=== PATIENT | male | born 1950 | race Caucasian/White ===

== ENCOUNTER 2017-08-29 13:08 | Emergency (ER) | payer OTHER, MEDICARE ==
[2017-08-29] MEDS ORDERED: IBUPROFEN 600 MG TAB PO ONE (13:31)
[2017-08-29] MEDS ORDERED: ACETAMINOPHEN 325 MG TAB PO ONE (13:31)
--- NOTE | 2017-08-29 13:39 | EDPHY ---
H & P Smoking Status: Never smoked Time Seen by Provider: 08/29/17 13:12 HPI/ROS: This patient reports gradually increasing pain to the right lateral neck and shoulder. He has had this for months and feels that worsened during appear to time that he developed a Price inhibitor associated cough from lisinopril which she subsequently stopped. The symptoms diminished with ice to the neck and shoulder and worse with movement. In the morning the pain is typically achy and moderate intensity but through the day the pain increases in intensity becomes more sharp in nature. He tried ibuprofen yesterday without significant improvement and then took a single 10 mg oxycodone that he had without significant improvement. He reports associated radiation of the pain down his arm to his hand. He also describes paresthesias to the right hand with his symptoms. He has not taken any medications today prior to arrival. He drove himself by private vehicle for further evaluation. ROS: Constitutional: No fevers. HEENT: No recent head trauma or URI symptoms. Musculoskeletal: He has some chronic low back pain with what sounds like spinal stenosis by his description and by his description of MRI findings. No recent shoulder trauma. Neuro: No bowel or bladder incontinence. No focal weakness. Integumentary: No skin rash 7 point ROS is otherwise negative. (Doc Echevarria) Social History: Patient is a marijuana Grower. (Doc Echevarria) Physical Exam: Physical Exam Vital signs are normal. General: No acute distress HEENT: Atraumatic. Eyes: Pupils equal and react to light. Extraocular motions are intact. Neck: Patient has no midline tenderness. He does have right paraspinous muscular tenderness extends the right trapezius and rhomboid muscle area of the right shoulder. He has limited range of motion for flexion due to pain. The patient has increased pain with neck extension and increased pain with lateral flexion toward the affected side, decreased range lateral flexion away from the affected side. Lungs: No respiratory distress. Extremities: Atraumatic normal except for right shoulder Right shoulder: Patient has some tenderness near the apex of the shoulder but mostly posterior tenderness. Despite this, he retains full range of motion but does have some increased pain with AB duction. Cardiac: Brisk capillary refill is intact throughout. Pulses are 2+ and symmetric in the affected extremity. Skin: No rash or pallor. Neuro: Alert and oriented x3. Patient maintains normal light touch sensory exam bilateral upper extremities despite his paresthesias. He maintains 2+ symmetric biceps, triceps, brachioradialis and patellar DTRs bilaterally. no sensorimotor deficits are appreciated. 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 Initial differential diagnosis: Cervical radiculopathy, calcific tendinitis, impingement syndrome, rotator cuff injury, cervical strain (Doc Echevarria) Constitutional: Initial Vital Signs Temperature (C) 36.4 C 08/29/17 13:13 Heart Rate 81 08/29/17 13:13 Respiratory Rate 16 08/29/17 13:13 Blood Pressure 146/96 H 08/29/17 13:13 O2 Sat (%) 99 08/29/17 13:13 O2 Delivery Mode Room Air Allergies/Adverse Reactions: Sulfa (Sulfonamide Antibiotics) Allergy (Verified 08/29/17 13:12) Home Medications: Medication Instructions Recorded Lexapro 08/29/17 Lidocaine [Lidoderm] 1 each TP DAILY #20 adh..patch 08/29/17 Lipitor 08/29/17 Methocarbamol [Robaxin 750 mg (*)] 750 - 1,500 mg PO QID PRN #30 tab 08/29/17 Oxycodone HCl 08/29/17 methylPREDNISolone [Medrol Dose 4 mg PO AD #1 ea 08/29/17 Yandel] traMADol [Ultram 50 mg (*)] 50 - 100 mg PO Q4 PRN #20 tab 08/29/17 MDM/Departure - [facility] Imaging: I viewed and interpreted images myself - [facility] Diagnostics: Cervical spine x-rays: Multilevel degenerative changes by my interpretation. Shoulder x-rays: Normal by my interpretation. (Doc Echevarria) Imaging Results: Imaging Impressions Cervical Spine X-Ray 08/29/17 13:32 Impression: 1. Multilevel degenerative changes as above-detailed, with an underlying dextrocervical scoliosis and facet osteoarthropathy. 2. Secondary indicator of underlying cervical muscle spasm. 3. Indeterminate nodule in the right apex, necessitating further evaluation with unenhanced chest CT imaging. Additionally, if there is further clinical concern regarding the patient's cervicalgia and right radicular symptoms, MR imaging could be considered. A test result has been communicated to a licensed care provider and documented in the [facility] Critical Result system on 08/29/2017 16:50, Message ID [id number]. Shoulder X-Ray 08/29/17 13:32 Impression: Degenerative osteoarthritic features. If there is further clinical concern regarding the patient's shoulder pain, MR imaging could be considered. Medications Given: Discontinued Medications Acetaminophen (Tylenol) 975 mg PO EDNOW ONE Stop: 08/29/17 13:32 Last Admin: 08/29/17 13:35 Dose: 975 mg Ibuprofen (Motrin) 600 mg PO EDNOW ONE Stop: 08/29/17 13:32 Last Admin: 08/29/17 13:35 Dose: 600 mg ED Course/Re-evaluation: Patient's presentation suggests cervical radiculopathy. His cervical spine x- rays reveal significant multilevel degenerative changes. He does not have any neuro deficits appreciable on exam despite his right arm paresthesias. No long tract symptoms or other red flag findings. I think that his shoulder pain is attributable to his cervical radiculopathy and I counseled regarding this. Will treat him with Solu-Medrol and a combination of other analgesics some muscle relaxant. Encouraged him to follow up with Neurosurgery for further evaluation. Answered all his questions prior to discharge home. (Doc Echevarria) Radiology over-read by Dr. Pop. He describes 15 mm nodule in the right lung apex at the level of the 3rd posterior rib. I called the patient to tell him to get an unenhanced chest CT scan as recommended by Radiology. He has follow-up with Dr. Watters on Wednesday and will pursue further evaluation for this lung nodule. (Argenis Escalante) - Depart Disposition: Home, Routine, Self-Care Clinical Impression: Cervical radiculopathy Shoulder pain, right Qualifiers: Chronicity: acute Qualified Code(s): M25.511 - Pain in right shoulder Cervical spine degeneration Qualifiers: Spinal osteoarthritis complication: with radiculopathy Qualified Code(s): M47.22 - Other spondylosis with radiculopathy, cervical region Condition: Good Instructions: Cervical Radiculopathy (ED) Additional Instructions: Diagnoses: 1. Cervical radiculopathy 2. Shoulder pain 3. Cervical spine degeneration Plan: Lidoderm patches as prescribed Gentle stretches as described Solu-Medrol Dosepak Methocarbamol muscle relaxant Tylenol in addition Tramadol if needed for pain that prevents sleep. No driving, alcohol work on tramadol. Follow up with neuro surgeon listed below for further evaluation of your neck. Return to the emergency department for any significant worsening despite the treatment plan. Prescriptions: Lidocaine [Lidoderm] 1 each TP DAILY #20 adh..patch Methocarbamol [Robaxin 750 mg (*)] 750 - 1,500 mg PO QID PRN #30 tab PRN Reason: Muscle Spasms methylPREDNISolone [Medrol Dose Yandel] 4 mg PO AD #1 ea traMADol [Ultram 50 mg (*)] 50 - 100 mg PO Q4 PRN #20 tab PRN Reason: breakthrough pain Referrals: Duarte Watters DO [Primary Care Provider] - As per Instructions Farhan Mendes MD [Medical Doctor] - As per Instructions
[2017-08-29 15:01] VITALS: BP 135/76; PULSE 78; RESP 20; TEMP 98.1; O2SAT 96
== END 2017-08-29 15:01 | disposition home or self-care (01) ==
LOC: CED 13:08
DX: M47.22 Other spondylosis with radiculopathy, cervical region (principal)
CPT/HCPCS: 72050-PO; 73030-PO

== ENCOUNTER → 2017-10-18 | Outpatient (CLI) | payer OTHER, MEDICARE | LOC: CIMAGING 08:58 | PROVIDERS: ATTEND Family Medicine | DX: R91.1 Solitary pulmonary nodule (principal); M48.54XA Collapsed vertebra, not elsewhere classified, thoracic region, initial encounter for fracture; E27.8 Other specified disorders of adrenal gland; I25.10 Atherosclerotic heart disease of native coronary artery without angina pectoris | CPT/HCPCS: 71250-PO ==

== ENCOUNTER 2018-09-13 03:09 | Emergency (ER) | payer OTHER, MEDICARE ==
--- NOTE | 2018-09-13 03:54 | EDPHY ---
H & P Time Seen by Provider: 09/13/18 03:11 HPI/ROS: CHIEF COMPLAINT: 3 days of left lower quadrant mild discomfort followed by 15 hrs of gross hematuria HISTORY OF PRESENT ILLNESS: This is a 68-year-old male who is 11 years status post total prostatectomy with his last visit Urology 6 years ago as he was essentially cleared from his cancer. His rim most recent PSA to his knowledge has been normal. He did notice beginning about 2 weeks ago pain in his LS spine region midline that when toward his coccyx. He stayed in the same general area, did not migrate did not get worse and abated about 4 days ago. Starting 3 days ago he started noticing a mild ache without any palpable tenderness to the left lower quadrant. Likewise this did not migrate or expand. He did not notice anything particular that would cause it, and it has since resolved as of yesterday. He has had no flank pain during the course of last 2 weeks although on clinical exam he is somewhat sensitive to moderate tap on the left flank area. Beginning noon yesterday is when he started noting the hematuria that was grossly nature. At times he has been passing clots. At no point has he had the sense that he really needs to for sleep press in the bladder to expel his urine or clots but has noted clots floating. Finally he does not have a sense that he did not finish his urination. Upon old chart review his last CBC included a hemoglobin of 14.4 with hematocrit 43.5. At that time his creatinine was 0.8. These findings compare as in the medical followup section of progress to be different, with a hemoglobin today of 13.0, hematocrit 39 and a creatinine 1.1 which is now elevated compared to the 0.8, of 4 months ago He does take aleve 1-2 times a day several times a week. REVIEW OF SYSTEMS: Constitutional: No fever, no chills. Eyes: No discharge No diplopia ENT: No sore throat. Cardiovascular: No chest pain, no palpitations. Respiratory: No cough, shortness of breath, or wheezing. Gastrointestinal: No Nausea, vomiting, abdominal pain or diarrhea Genitourinary: No hematuria or frequency. Musculoskeletal: No back pain. Skin: No rashes. Neurological: No headache. A 10 system review of systems was performed and is negative except for the noted findings in the HPI. Source: Patient Exam Limitations: No limitations - Medical/Surgical History Hx Asthma: No Hx Chronic Respiratory Disease: No Hx Diabetes: No Hx Cardiac Disease: No Hx Renal Disease: Yes Hx Cirrhosis: No Hx Alcoholism: No Hx HIV/AIDS: No Hx Splenectomy or Spleen Trauma: No Other PMH: Prostate ca /Prostatectomy/ Kidney stones / Varicosity on left kidney. Tonsilectomy - Social History Smoking Status: Never smoked Alcohol Use: None Drug Use: None - Physical Exam Exam: General Appearance: Alert, no distress. Afebrile. Normal phonation. No respiratory distress. Eyes: Pupils equal and round no pallor or injection. No icterus ENT, Mouth: Mucous membranes moist Pharynx without erythema or exudate. TM Clear. Neck: No adenopathy. Supple. No JVD. Trachea in midline. Respiratory: There are no retractions, lungs are clear to auscultation. Cardiovascular: Regular rate and rhythm. Abdomen: Soft and nontender, no masses, bowel sounds normal. Femoral pulses equal. There is no tenderness left lower quadrant where he has been having discomfort for the last 3 days. He does have some mild left flank tenderness with moderate percussion Neurological: Ox3. No motor weakness. Sensation intact. Gait nl. Skin: Warm and dry, no rashes. Musculoskeletal: No joint swelling. Extremities: No edema. Homans sign negative. No cords. Psychiatric: Normal affect. Patient is oriented X 3. There is no agitation Constitutional: Initial Vital Signs Temperature (C) 36.5 C 09/13/18 03:21 Heart Rate 71 09/13/18 03:21 Respiratory Rate 16 09/13/18 03:21 Blood Pressure 154/102 H 09/13/18 03:21 O2 Sat (%) 93 09/13/18 03:21 O2 Delivery Mode Room Air Allergies/Adverse Reactions: Sulfa (Sulfonamide Antibiotics) Allergy (Verified 08/29/17 13:12) Home Medications: Medication Instructions Recorded Lexapro 08/29/17 Lidocaine [Lidoderm] 1 each TP DAILY #20 adh..patch 08/29/17 Lipitor 08/29/17 Oxycodone HCl 08/29/17 RX: Methocarbamol [Robaxin 750 mg 750 - 1,500 mg PO QID PRN #30 tab 08/29/17 (*)] RX: traMADol [Ultram 50 mg (*)] 50 - 100 mg PO Q4 PRN #20 tab 08/29/17 methylPREDNISolone [Medrol Dose 4 mg PO AD #1 ea 08/29/17 Yandel] Medical Decision Making - Diagnostics Imaging Results: I received a fax transmission of the CT scan with and CT scan without IV contrast of the abdomen pelvis. Findings include the following: Small area hernia, Bilateral symmetrical mild perinephric stranding with right renal cyst but no hydronephrosis. Prostatectomy Extensive diverticulosis Normal appendix. Also, I reviewed the CT scan images on the [facility] myself ED Course/Re-evaluation: The patient has pain in the left lower quadrant was mild and fleeting thus he did not require pain management. He was hemodynamically stable thus he did not require fluid resuscitation. He was given a L of normal saline however since we were going to perform a IV contrast procedure on him. Laboratory studies include the following: Hemoglobin 13 which is down from 14.4 this past April Creatinine 1.1 which is up from the 0.8 this past April Mild elevation of the chloride level Urinalysis shows: 2+ protein 3+ hematuria Negative leukocytes No white cells No bacteria seen Urine culture has been ordered I shared the findings of the CT scan with the patient. When I mentioned hiatal hernia explained at length he nodded had knowingly that he has been experiencing nocturnal/evening dyspepsia for the last month. Thereby he will be recommended to go on a course of Prilosec for the next month and have a follow-up with family physician in the next couple weeks, as well as not to take any Aleve, as he has had a drop in his H&H = unknown if acute from hematuria or subacute from his reflux sx. Case was discussed prior to departure with Dr. Eyad Porter cassandra consultant for Dr. Madden , pt last seen in for hospitalized prostatitis, severe enough requiring ID consult. He concurred with the plan for outpatient follow-up the next 2-3 days , will relate that to Dr. Madden. Differential Diagnosis: Diagnostic considerations include, but are not limited to, the following, 5this represents a partial list of diagnoses considered These considerations are based on history, physical exam, past history, reassessment and diagnostic testing: Hematuria, urinary tract infection, septic syndrome, kidney stone, bladder mass , renal mass, diverticulitis - Data Points Laboratory Results: 09/13/18 09/13/18 03:47 03:14 POC Sodium 142 mEq/L mEq/L (135-145) POC Potassium 4.0 mEq/L mEq/L (3.3-5.0) POC Chloride 113.0 mEq/L H mEq/L (97-110) POC Total CO2 27 mEq/L mEq/L (22-31) POC BUN 21 mg/dL mg/dL (7-23) POC Creatinine 1.1 mg/dL mg/dL (0.7-1.3) POC Glucose 134 mg/dL H mg/dL (70-100) POC Calcium 9.2 mg/dL mg/dL (8.5-10.4) Urine Color RED Urine Appearance HAZY Urine pH 6.0 (5.0-7.5) Ur Specific [place] 1.012 (1.002-1.030) Urine Protein 2+ H (NEGATIVE) Urine Ketones NEGATIVE (NEGATIVE) Urine Blood 3+ H (NEGATIVE) Urine Nitrate NEGATIVE (NEGATIVE) Urine Bilirubin NEGATIVE (NEGATIVE) Urine Urobilinogen NEGATIVE EU EU (0.2-1.0) Ur Leukocyte Esterase NEGATIVE (NEGATIVE) Urine RBC 50-182 /hpf H /hpf (0-3) Urine WBC 0-1 /hpf /hpf (0-3) Ur Epithelial Cells TRACE /lpf /lpf (NONE-1+) Urine Mucus TRACE /lpf /lpf (NONE-1+) Urine Glucose NEGATIVE (NEGATIVE) Medications Given: Discontinued Medications Sodium Chloride (Ns) 1,000 mls @ 0 mls/hr IV EDNOW ONE; Wide Open PRN Reason: Protocol Stop: 09/13/18 04:28 Last Admin: 09/13/18 04:28 Dose: 1,000 mls Point of Care Test Results: CBC CBC Collection Date 09/13/18 CBC Collection Time 03:40 WBC 6.49 RBC 4.42 HGB 13.0 HCT 39.1 PLT 308 Neut # 3.53 Neut 54.3 LYMPH # 1.77 LYMPH 27.3 MCV 88.5 Chemistry 09/13/18 03:47 POC Sodium 142 mEq/L mEq/L (135-145) POC Potassium 4.0 mEq/L mEq/L (3.3-5.0) POC Chloride 113.0 mEq/L H mEq/L (97-110) POC Total CO2 27 mEq/L mEq/L (22-31) POC BUN 21 mg/dL mg/dL (7-23) POC Creatinine 1.1 mg/dL mg/dL (0.7-1.3) POC Glucose 134 mg/dL H mg/dL (70-100) POC Calcium 9.2 mg/dL mg/dL (8.5-10.4) Departure - Departure Disposition: Home, Routine, Self-Care Clinical Impression: Gross hematuria, Hiatal hernia with GERD Condition: Good Instructions: Gastroesophageal Reflux Disease in Children (ED), Hematuria (ED) Additional Instructions: Return if you have any following: Fainting Feeling unsteady in your feet Unable to empty her bladder No Advil or Aleve. You may take Tylenol Take an [id number] Prilosec, lansoprazole, or Prevacid daily for the next 1 month and have a follow-up with her family doctor regarding GERD. Nothing except sips of water until you have checked her phone this morning with respect to the diagnostic plan per Dr. Madden's phone call that I will make this morning. Referrals: Santiago Madden MD [Medical Doctor] - As per Instructions
[2018-09-13] MEDS ORDERED: IOPAMIDOL (ISOVUE-300) 100 ML BTL ONE (04:16)
[2018-09-13] MEDS ORDERED: NS 1,000 ML IV ONE (04:27)
[2018-09-13 05:44] VITALS: BP 139/89
== END 2018-09-13 05:45 | disposition home or self-care (01) ==
LOC: CED 03:09
DX: K44.9 Diaphragmatic hernia without obstruction or gangrene (principal); K21.9 Gastro-esophageal reflux disease without esophagitis; E86.9 Volume depletion, unspecified; Z87.442 Personal history of urinary calculi
CPT/HCPCS: 74178; 96360; 99285; Q9967; 80048-ER; 85025-QW-ER